=== PATIENT | female | born 1950 | race Caucasian/White ===

== ENCOUNTER → 2017-02-28 | Outpatient (CLI) | payer OTHER, BC ==
[~2017-02-28] MED LIST: GLIPIZIDE10 MG PO; LISINOPRIL10 MG PO; LOMOTIL TABLET1 EACH PO; METAMUCIL POWD798 GM PO; METFORMIN HCL500 MG PO; SILVADENE20 GM TP
== END | disposition home or self-care (01) ==
DX: R26.2 Difficulty in walking, not elsewhere classified (principal); M62.81 Muscle weakness (generalized); M25.562 Pain in left knee; M25.662 Stiffness of left knee, not elsewhere classified
CPT/HCPCS: 97110 GP; 97150 GO; 97161 GP; 97165 GO

== ENCOUNTER 2017-03-27 06:47 | Inpatient (IN) | payer OTHER, BC ==
[~2017-03-27] VITALS: Ht 167.6 cm; Wt 84.9 kg
[~2017-03-27 06:47] MED LIST changes: +FERROUS SULFAT325 MG PO; +HYDROCHLOROTH12.5 M3 PO; +PROBIOTIC1 EAC1 PO; +VENTOLIN HFA18 GM IH
[2017-03-27 07:39] LABS: POINT-OF-CARE METER ID UU14174212
[2017-03-27 08:08] VITALS: BP 137/69
[2017-03-27 12:25] LABS: POINT-OF-CARE METER ID UU13113675; POINT-OF-CARE USER ID ADMKMM76
[2017-03-27 13:05] VITALS: BP 124/57
[2017-03-27 13:07] LABS: HEMATOCRIT 30.5 % (36.0-46.0); MCHC 34.1 G/DL (30.0-36.0); MCV 93.8 FL (83-99); MEAN PLAT.VOLUME 8.2 uM^3 (9.5-12.4); PLATELET COUNT 91 K/uL (156-360); RBC DIS.WIDTH-CV 13.1 % (11.8-14.6); RED BLOOD COUNT 3.25 M/uL (3.80-5.20)
[2017-03-27 13:10] LABS: WHITE BLOOD COUNT 1.6 K/uL (4.1-10.2)
[2017-03-27 15:46] VITALS: BP 120/59
[2017-03-27 16:37] LABS: POINT-OF-CARE METER ID UU13113712
[2017-03-27 18:32] VITALS: BP 119/72
[2017-03-27 20:34] VITALS: BP 120/55
[2017-03-27 22:27] LABS: POINT-OF-CARE METER ID UU13113712
[2017-03-28 00:26] VITALS: BP 118/56
[2017-03-28 03:55] VITALS: BP 121/56
[2017-03-28 05:55] LABS: ANION GAP 7 MEQ/L (2-14); CHLORIDE 100 MEQ/L (99-109); GFR ESTIMATE (CALCULATED) > 59 mL/min/; GLUCOSE 223 mg/dL (70-99); POTASSIUM 4.1 MEQ/L (3.7-5.4); SAMPLE HEMOLYSIS CHECK 0; SAMPLE ICTERIC CHECK 0; SAMPLE LIPEMIA CHECK 0; SODIUM 132 MEQ/L (136-147); UREA NITROGEN (BUN) 11 mg/dL (9-23)
[2017-03-28 06:13] LABS: HEMATOCRIT 31.4 % (36.0-46.0); MCH 31.9 PG (29.0-34.0); MCHC 34.4 G/DL (30.0-36.0); MCV 92.6 FL (83-99); MEAN PLAT.VOLUME 8.8 uM^3 (9.5-12.4); RBC DIS.WIDTH-CV 13.3 % (11.8-14.6); RED BLOOD COUNT 3.39 M/uL (3.80-5.20)
[2017-03-28 06:36] LABS: PLATELET COUNT 129 K/uL (156-360); WHITE BLOOD COUNT 3.7 K/uL (4.1-10.2)
[2017-03-28 07:59] VITALS: BP 124/59
[2017-03-28 11:44] LABS: POINT-OF-CARE METER ID UU13113712
[2017-03-28 12:23] VITALS: BP 169/72
[2017-03-28 15:38] VITALS: BP 111/52
[2017-03-28 16:13] LABS: POINT-OF-CARE METER ID UU13113712
[2017-03-28 19:59] VITALS: BP 126/56
[2017-03-28 22:14] LABS: POINT-OF-CARE METER ID UU13113712
[2017-03-29 00:07] VITALS: BP 111/56
[2017-03-29 04:30] VITALS: BP 105/52
[2017-03-29 05:28] LABS: HEMATOCRIT 26.2 % (36.0-46.0); MCH 31.7 PG (29.0-34.0); MCHC 34.7 G/DL (30.0-36.0); MCV 91.3 FL (83-99); MEAN PLAT.VOLUME 8.6 uM^3 (9.5-12.4); PLATELET COUNT 98 K/uL (156-360); RBC DIS.WIDTH-CV 13.3 % (11.8-14.6); RBC DIS.WIDTH-SD 44.5 % (39-53); RED BLOOD COUNT 2.87 M/uL (3.80-5.20); WHITE BLOOD COUNT 2.3 K/uL (4.1-10.2)
[2017-03-29 05:54] LABS: ANION GAP 8 MEQ/L (2-14); CHLORIDE 101 MEQ/L (99-109); GFR ESTIMATE (CALCULATED) > 59 mL/min/; GLUCOSE 237 mg/dL (70-99); SAMPLE HEMOLYSIS CHECK 0; SAMPLE ICTERIC CHECK 0; SAMPLE LIPEMIA CHECK 0; SODIUM 134 MEQ/L (136-147); UREA NITROGEN (BUN) 12 mg/dL (9-23)
[2017-03-29 05:55] LABS: POTASSIUM 3.1 MEQ/L (3.7-5.4)
[2017-03-29 08:00] VITALS: BP 122/58
[2017-03-29] MEDS ORDERED: LOVENOX40 MG/0.4 SC (08:57)
[2017-03-29] MEDS ORDERED: DOCUSATE SODIU100 MG PO (08:57)
[2017-03-29] MEDS ORDERED: TRAMADOL HCL50 MG PO (08:58)
[2017-03-29 11:16] LABS: POINT-OF-CARE METER ID UU13113712
[2017-03-29 12:00] VITALS: BP 128/63
[2017-03-29 14:59] VITALS: BP 123/69
== END 2017-03-29 15:00 | disposition home or self-care (01) | DRG 470 ==
LOC: 3WEST 06:47 → 2SOUTH 06:47 → 3WEST 12:42 → 2SOUTH 13:17 → 3WEST 03-29 15:00
PROVIDERS: Orthopaedic Surgery; Physician Assistant
PROC: 0SRU0J9 Replacement of Left Knee Joint, Femoral Surface with Synthetic Substitute, Cemented, Open Approach (ICD-10-PCS; principal; 2017-03-27)
DX: M17.12 Unilateral primary osteoarthritis, left knee (principal); E87.1 Hypo-osmolality and hyponatremia; Z96.651 Presence of right artificial knee joint; E11.9 Type 2 diabetes mellitus without complications; K21.9 Gastro-esophageal reflux disease without esophagitis; I10 Essential (primary) hypertension; N39.46 Mixed incontinence; E66.9 Obesity, unspecified; Z68.28 Body mass index [BMI] 28.0-28.9, adult; K58.9 Irritable bowel syndrome, unspecified; D69.9 Hemorrhagic condition, unspecified
CPT/HCPCS: 73560; 80048; 82948; 85014; 85018; 85027; C1713; J0131; J0690; J1170; J1650; J1815; J2175; J2250; J2405; J3370; J7030; J7050

== ENCOUNTER 2017-07-10 17:18 | Emergency (ER) | payer OTHER, BC ==
[~2017-07-10] VITALS: Ht 165.1 cm; Wt 80.7 kg
[~2017-07-10 17:18] MED LIST changes: +DOCUSATE SODIU100 MG PO; +LOVENOX40 MG/0.4 SC; +TRAMADOL HCL50 MG PO
[2017-07-10 18:41] LABS: EOSINOPHIL (%) 0.3 % (0-5); IMMATURE GRANULOCYTE (%) 0.3 % (0.0-0.7); INSTRUMENT ABS NEUTROPHIL CT 2.8 K/uL; LYMPHOCYTE COUNT 0.2 K/uL (1.0-2.8); MCH 29.9 PG (29.0-34.0); MCHC 33.9 G/DL (30.0-36.0); MEAN PLAT.VOLUME 7.8 uM^3 (9.5-12.4); MONOCYTE COUNT 0.3 K/uL (0-0.8); NEUTROPHIL (%) 83.2 % (45-76); NEUTROPHIL COUNT 2.8 K/uL (1.8-6.4); PLATELET COUNT 141 K/uL (156-360); RBC DIS.WIDTH-CV 13.2 % (11.8-14.6); RBC DIS.WIDTH-SD 41.4 % (39-53); RED BLOOD COUNT 3.75 M/uL (3.80-5.20); WHITE BLOOD COUNT 3.3 K/uL (4.1-10.2)
[2017-07-10 18:52] LABS: CHLORIDE 99 mEq/L (99-109); POTASSIUM 3.9 mEq/L (3.7-5.4); SODIUM 135 mEq/L (136-147)
[2017-07-10 18:54] LABS: GLUCOSE 147 mg/dL (70-99)
[2017-07-10 18:56] LABS: ANION GAP 13 MEQ/L (2-14)
[2017-07-10 18:58] LABS: GFR ESTIMATE (CALCULATED) > 59 mL/min/
[2017-07-10 18:59] LABS: UREA NITROGEN (BUN) 12 mg/dL (9-23)
[2017-07-11] MEDS ORDERED: KEFLEX500 MG PO (00:04)
[2017-07-11] MEDS ORDERED: FLAGYL500 MG PO (00:04)
[2017-07-11] MEDS ORDERED: CIPRO500 MG PO (00:04)
[2017-07-11 00:18] VITALS: BP 140/79
== END 2017-07-11 00:19 | disposition home or self-care (01) ==
LOC: EME 17:18
PROVIDERS: Emergency Medicine
DX: K61.0 Anal abscess (principal); R10.9 Unspecified abdominal pain; E11.9 Type 2 diabetes mellitus without complications; K21.9 Gastro-esophageal reflux disease without esophagitis; I10 Essential (primary) hypertension; Z79.84 Long term (current) use of oral hypoglycemic drugs
CPT/HCPCS: 80048; 85025